=== PATIENT | female | born 1955 | race Caucasian/White ===

== ENCOUNTER 2021-10-17 20:07 | Inpatient (IN) | payer OTHER ==
[~2021-10-17] VITALS: Ht 180.3 cm; Wt 107.1 kg
--- NOTE | 2021-10-17 20:17 | NUR ---
ARRIVED VIA EMS AT 1999. A/O, INDEPENDENTLY TO BATHROOM TO VOID, VOMIT, CHANGE CLOTHES. RA, HAS CONTINUED TO HAVE VOMITUS SINCE ARRIVING. CURRENTLY IN BED, RESTING IN HOSPES THAT HER DECREASE IN MOVEMENT WILL SETTLE THE VOMITING. IS INCONT GENERALLY, HOWEVER WTIH THE VOMITING, SHE HAS INCREASE INCONT. H/O BREAST CANCER, ON CHEMO. DR HUDSON IN ROOM ADMITTING
--- NOTE | 2021-10-17 21:20 | NUR ---
ADMISSION ASSESSMENT COMPLETE. PT ALERT AND ORIENTED. REPORTS N/V AND EPIGASTRIC PAIN 03/25. PRN FOR PAIN AND N/V ADMINISTERED. SCHEDULED MEDS ADMINISTERD. BOWEL TONES HYPOACTIVE. ABD FIRM AND MILDLY DISTENDED. IVF INFUSING WNL. PT NPO. ORAL CARE SWABS AND CHAPSTICK PROVIDED. WARM BLANKET PROVIDED. PT ORIENTED TO ROOM AND NURSE CALL LIGHT. DENIES QUESTIONS OR CONCERNS AT THIS TIME. CALL LIGHT IN REACH. BED ALARM FOR SAFETY.
--- NOTE | 2021-10-17 23:40 | NUR ---
PT RESTING IN BED WITH EYES CLOSED. RESPIRATIONS EVEN. CALL LIGHT IN REACH. BED ALARM FOR SAFETY.
--- NOTE | 2021-10-18 02:26 | NUR ---
VS AND I&O COMPLETE. PT UP TO BR WITH SBA TO VOID 150 ML CONCENTRATED URINE. BACK TO BED, МАРИНА WELL. PRN FOR NAUSEA AND PAIN ADMINISTERED PER EMAR. PT SpO2 NOTED AT 86% ON RA. 1L/NC PLACED. SpO2 97%. WARM BLANKET PROVIDED. IVF INFUSING WNL. PT DENIES FURTHER NEEDS. CALL LIGHT IN REACH. BED ALARM FOR SAFETY.
--- NOTE | 2021-10-18 04:18 | NUR ---
PT RESTING IN BED WITH EYES CLOSED. RESPIRATIONS EVEN. SpO2 96% ON 1L/NC. HR 80'S.
--- NOTE | 2021-10-18 06:54 | NUR ---
SCHEDULED MEDS ADMINISTERED. PRN FOR ABD PAIN ADMINISTERED. PT DENIES NAUSEA. 1L/NC IN PLACE. SpO2 94%. RESPIRATIONS SHALLOW. NO FURTHER NEEDS. CALL LIGHT IN REACH.
--- NOTE | 2021-10-18 07:32 | NUR ---
Patient resting in bed, eyes closed, respirations even and non labored. Patient has no distress. Personal supplies and call light within reach.
[2021-10-18] MEDS ORDERED: DULOXETINE HCL20 MG PO (07:38)
[2021-10-18] MEDS ORDERED: IBRANCE100 M1 PO (07:38)
--- NOTE | 2021-10-18 08:44 | NUR ---
PATIENT RESTING IN BED. VITALS AND I&OS CHARTED. ORAL CARE PROVIDED. CALL LIGHT IN EASY REACH
--- NOTE | 2021-10-18 09:27 | NUR ---
Zofran 4mg IVP admin for reports of nausea.
--- NOTE | 2021-10-18 09:30 | NUR ---
Spoke with Luiza. She lives in [place] but has a vacation home in [place]. Planning to stay for 3 weeks, then return home. Unsure now as she may go home when discharged. She denies any use of DME. NO issues getting in or out of home, she drives, is a retired heavy equipment service technician. Not enjoying usp at this point as she has had cancer. Denies any need s. States he phone is out of juice, gave her a I phone director compensation from the office. Pt plans to dc to either [place] or [place] on dc. Will be with her spouse.
--- NOTE | 2021-10-18 09:33 | NUR ---
MED REC COMPLETED BY PHARMACY
--- NOTE | 2021-10-18 11:21 | NUR ---
PATIENT SBA TO BR. VIZCAINO CHANGED. PATIENT AMBULATING NOONAN WITH [facility] STUDENT NATALYA.
--- NOTE | 2021-10-18 11:26 | NUR ---
Patient ambulated in hallway, x1 lap around nurses station. Patient's gait is even and steady, pt tolerated walking well. Patient reports improved nausea this morning. Pt requesting to hold off on pain medicaiton at this time. No current needs. Encouraged patient to call if she has needs.
--- NOTE | 2021-10-18 14:04 | NUR ---
HERBER NIETO RECOMMENDED I NOT DISTURB PT AT THIS TIME. BATTLING SOME NAUSEA. WILL FOLLOW NEEDED
--- NOTE | 2021-10-18 14:09 | NUR ---
Patient resting in bed, eyes closed, respirations even and non labored. Patient has no distress. IV infusing per provider order, iv patent. Personal supplies and call light within reach.
--- NOTE | 2021-10-18 14:49 | NUR ---
Dilaudid 1mg ivp and zofran 4mg ivp admin for abd pain and nausea. Patient provided with ice pack for head pain.
--- NOTE | 2021-10-18 16:44 | NUR ---
Patient up to restroom to void then back to bed. Patient reports her nausea and headache have improved. Iv fluids infusing per provider order. No current needs. Ice pack provided. No other needs. Personal supplies and call light within reach.
--- NOTE | 2021-10-18 19:20 | NUR ---
SHIFT REPORT RECEIVED FROM EMILIA CRAVEN. PT PROVIDED ICE CHIPS AND MOUTH SWABS. NO OTHER NEEDS AT THIS TIME. PT DENIES PAIN. CALL LIGHT IN REACH.
--- NOTE | 2021-10-18 21:15 | NUR ---
IV PUMP ALARMING, ISSUE RESOLVED. NEW BAG IV FLUIDS HUNG AND INFUSING DIRECTED, IV SITE WNL. VS DONE, ELEVATED TEMP NOTED. PRIMARY RN PARMINDER RM. pt DEMONSTRATED USE OF IS, ROOM TEMP LOWERED AND EXESS BLANKETS REMOVED.
--- NOTE | 2021-10-18 21:30 | NUR ---
ASSESSMENT COMPLETED. GCS 15, A&O X4. LUNGS CLEAR, HEART TONES REGULAR. ABD FIRM, MILDLY DISTENDED, HYPOACTIVE BOWEL TONES. PT REPORTS CHRONIC NUMBNESS AND TINGLING IN FEET. IV WNL, CDI, FLUSHED WELL. IV FLUIDS INFUSING PER ORDER. NO OTHER NEEDS AT THIS TIME. CALL LIGHT IN REACH.
--- NOTE | 2021-10-19 | NUR ---
PT RESTING IN BED. RR EVEN, UNLABORED. CALL LIGHT IN REACH.
--- NOTE | 2021-10-19 02:00 | NUR ---
PT RESTING IN BED, EYES CLOSED. RR EVEN, UNLABORED. IV FLUIDS INFUSING PER ORDER. CALL LIGHT IN REACH.
--- NOTE | 2021-10-19 04:05 | NUR ---
IV PUMP ALARMING, RESOLVED. NEW BAG IV FLUIDS PROVIDED. PT REPORTS 5/10 ALEX, PRN PAIN MED PROVIDED. IV WNL. ABD MILDLY DISTENDED, FIRM, BOWEL TONES HYPOACTIVE. PT STATES SHE HAS NO FLATUS. PT DENIES ABD PAIN. CHRONIC NUMBNESS AND TINGLING IN FEET. PT SPO2 86% ON RA, PT PLACED ON 1L NC, SPO2 UP TO 93%. NO OTHER NEEDS AT THIS TIME. CALL LIGHT IN REACH.
--- NOTE | 2021-10-19 06:14 | NUR ---
Patient's BP was 114/56. Patient's daily weight today in kilograms is 107.1.
--- NOTE | 2021-10-19 07:45 | NUR ---
REPORT RECEIVED FROM NIGHT RN AND PT. CARE RESUMED. PT. IS ALERT AND ORIENTED TO ALL. SHE C/O ABD TENDERNESS AND HEADACHE. TYLENOL NOT DUE, PT STATES PAIN IS TOLERABLE FOR NOW. LUNGS CLEAR THROUGHOUT. SHE IS ON 1L NC. IV SITE WNL AND FLUSHES WELL. DISCUSSED MEDS, POC AND SAFETY. LEFT RESTING WITH CALL LIGHT IN REACH.
--- NOTE | 2021-10-19 09:10 | NUR ---
Spoke with Luiza. States she is feeling better slightly. Has a headache. Feels this if from not taking her duloxtine since the weekend. is bringing, nurses have updated Dr. Chinchilla.
--- NOTE | 2021-10-19 10:59 | NUR ---
ROUNDING ON PT. SHE C/O CONTINUED H.A. TYLENOL RECENTLY ADMIN. AND ICE PACK PROVIDED. PT. ATTRIBUTES H.A. TO BEING OFF DULOXETINE. MD WILL RESTART MED TODAY. PT. BROUGHT BROTH AND JELLO. LEFT RESTING WITH CALL LIGHT IN REACH.
--- NOTE | 2021-10-19 13:30 | NUR ---
PT. TRIALED ON R.A. AND TAKEN OFF 1L NC. 02 SAT. REMAINED AT 87%. PT. GIVEN I.S. AND EDUCATED ON USE.
--- NOTE | 2021-10-19 13:38 | NUR ---
GUIDED PT'S TO HER RM-GAVE THEM TIME TO GREET EACH OTHER. WILL CHECK BACK AGAIN
--- NOTE | 2021-10-19 14:10 | NUR ---
Spoke with pt by phone as she is Covid +. Pt states she lives in town in a house with 3 steps. Steps have rails and she does not have issues with her steps. She has horses and chickens and is active. complaint is cough with extreme weakness. She states her spouse will complete house hold tasks, shopping and cooking. She denies needs and is not using 02. Plans on dc to home with spouse.
--- NOTE | 2021-10-19 19:00 | NUR ---
SHIFT REPORT RECEIVED FROM OMKAR CRAVEN. PT RESTING IN BED. NO NEEDS AT THIS TIME. CALL LIGHT IN REACH.
--- NOTE | 2021-10-19 21:00 | NUR ---
ASSESSMENT, VS AND I&O COMPLETED. GCS 15, A&O X4. PT HAS CHRONIC NUMBNESS AND TINGLING IN FEET, PULSES INTACT. CMS INTACT IN UPPER EXTREMITIES. LUNGS CLEAR, PT SPO2 92% ON 1L NC, NOT CHRONIC. ABD FIRM, PT STATES MILDLY DISTENDED, BOWEL TONES RARE/HYPOACTIVE, TENDER. IV WNL, CDI, IV FLUIDS INFUSING PER ORDER. SCHEDULED MEDS PROVIDED. PT REPORTS 5/10 ALEX, PRN PAIN MED PROVIDED. ICE CHIPS PROVIDED. NO OTHER NEEDS AT THIS TIME. CALL LIGHT IN REACH.
--- NOTE | 2021-10-19 23:46 | NUR ---
PT RESTING IN BED, EYES CLOSED. RR EVEN, UNLABORED. IV FLUIDS INFUSING PER ORDER. NC @ 1L. CALL LIGHT IN REACH.
--- NOTE | 2021-10-20 00:43 | NUR ---
PT REPORTS 5/10 ALEX AND ABD PAIN, PRN PAIN MED PROVIDED. PT IS NOW NPO. NO OTHER NEEDS. CALL LIGHT IN REACH.
--- NOTE | 2021-10-20 03:01 | NUR ---
PT RESTING IN BED, EYES CLOSED. RR EVEN, UNLABORED. NC @ 1L. IV FLUIDS INFUSING PER ORDER. CALL LIGHT IN REACH.
--- NOTE | 2021-10-20 04:58 | NUR ---
IV PUMP ALARMING, NEW BAG IV FLUIDS PROVIDED. ABD FIRM, MILDLY DISTENDED, BOWEL TONES RARE, TENDER. IV WNL. NUMBNESS AND TINGLING IN FEET. ICE PACK PROVIDED FOR ALEX/NECK PAIN 11/23. NO OTHER NEEDS AT THIS TIME. CALL LIGHT IN REACH.
--- NOTE | 2021-10-20 06:31 | NUR ---
PT RESTING IN BED, EYES CLOSED. RR EVEN, UNLABORED. CALL LIGHT IN REACH.
--- NOTE | 2021-10-20 07:45 | NUR ---
REPORT RECEIVED FROM NIGHT RN AND PT. CARE RESUMED. PT. C/O BACK ACHE, H.A., AND LOWER ABDOMINAL AND EPIGASTRASTIC TENDERNESS. BOWEL TONES ABSENT IN ALL QUADS. PT. DENIES NAUSEA. ADMIN. OXYCODONE. PT. ON ROOM AIR, SITTING IN CHAIR AND O2 SAT IS 92%. IV SITE WNL AND IVF INFUSING. MRI WAS CALLED TO CONFIRM 1000 MRI. LEFT RESTING WITH CALL LIGHT IN REACH.
--- NOTE | 2021-10-20 09:20 | NUR ---
Pt walking in room. Denies needs.
--- NOTE | 2021-10-20 10:00 | NUR ---
PT. AMBULATED WITH SBA TO WHEELCHAIR TO GO TO MRI. IVF DISCONNECTED AND IV S.L. PT LEFT ON RA.
--- NOTE | 2021-10-20 11:11 | NUR ---
PT. BACK FROM MRI. IVF AND POTASSIUM CONNECTED AND INFUSING. AT BEDSIDE.
--- NOTE | 2021-10-20 11:31 | NUR ---
PT ALERT, ORIENTED AND JUST BACK FROM MRI. BUDDY IN WORKING ON COMPUTER. PT PLEASANT, FEELS INFORMED. WERE TRANSFERRED HERE FROM HOSP[place] VACATION [place]. FEEL GOOD REGARDING CARE, ALL QUESTIONS ASKED ANSWERED. GAVE G.POST, ENCOURAGEMENT AND PT REQUESTED PRAYER. WILL FOLLOW NEEDED
--- NOTE | 2021-10-20 13:53 | NUR ---
PT. C/O ALEX AND EPIGASTRIC, LOWER ABDOMINAL PAIN. ADMIN TYLENOL AND OXYCODONE. BOWEL TONES ABSENT THROUGHOUT AND ABDOMEN IS MORE DISTENDED. PT. ON R.A. AND O2 SAT IS 91%. IV WNL AND IVF INFUSING. PT. DENIED FURTHER NEEDS AND LEFT RESTING WITH AT BEDSIDE.
--- NOTE | 2021-10-20 14:27 | NUR ---
PT. AMBULATED FROM BATHROOM TO BED WITH SBA AND TOLERATED WELL, DENYING SOB. PT. DENIES PAIN AND STATES SHE IS READY TO GO HOME. VITALS STABLE AND ON ROOM AIR. PT. LEFT RESTING WITH CALL LIGHT IN REACH.
--- NOTE | 2021-10-20 18:18 | NUR ---
PT. AMBULATED WITH SBA TO BATHROOM TO VOID. DENIES DIZZINESS. BROUGHT JELLO AND WATER. IV MAG. AND POTASSIUM INFUSING. PT. DENIES FURTHER NEEDS AND LEFT RESTING WITH CALL LIGHT IN REACH.
--- NOTE | 2021-10-20 19:17 | NUR ---
BEDSIDE REPORT FROM OMKAR PT RESTING IN BED EYES CLOSED RR 19 BPM, NO DISTRESS NOTED, WHEN LOOKED IN.
--- NOTE | 2021-10-20 21:02 | NUR ---
PT SITTING AT SIDE OF BED AT THIS TIME. ALERT AND ORIENTED SHE CALLED NURSES STATION TO REPORT IV PUMP BEEPING.
--- NOTE | 2021-10-20 23:08 | NUR ---
PT RESTING QUIETLY IN BED, EYES CLOSED RR 20BPM. NO DISTRESS NOTED AT THIS TIME
--- NOTE | 2021-10-20 23:29 | NUR ---
PT PLACED ON 1L OXYGEN AT THIS TIME AT SPOT CHECK PT OXYGEN SATURATION IS 88% ON ROOM AIR. WHILE PT SLEEPING.
--- NOTE | 2021-10-21 02:51 | NUR ---
PT'S IV PUMP WAS BEEPING, IV IS NOW INFUSING FINE. PT IS RESTING WITH EYES CLOSED, RR IS EVEN AND UNLABORED. CALL LIGHT IS CLOSE.
--- NOTE | 2021-10-21 03:30 | NUR ---
PT CALLED NURSES [facility]ATION TO REQUEST PAIN MEDICATIONS FOR 6/10 BACK PAIN. 7.5 MG OXYCODONE PO PRN ADMINISTERED ALSO TYLENOL 500MG PO PRN ADMINISTERED. PT SITTING AT SIDE OF BED, SHE SAID TO ALSO RELIEVE BACK PAIN, AFTER TAKING MEDICATIONS, PT REPOSITIONED BACK INTO BED. FRESH ICE WATER PROVIDED, PT HAD VOIDED 450ML CADEN COLORED URINE IN BATHROOM. PT HAS NO OTHER REQUESTS AT THIS TIME, ASSESSMENT COMPLETE
--- NOTE | 2021-10-21 04:38 | NUR ---
PT HAS SLEPT MOST OF SHIFT, ALERT TO PAIN AND NEED TO VOID, PRN PAIN MEDICATIONS ADMINISTERED NEEDED OVER SHIFT FOR 5-6/10 PAIN AT HER BACK NO NAUSEA, NO BM, HYPOACTIVE BOWEL TONES NOTED IN RIGHT AND LEFT UPPER QUADRANTS OF ABD. NO FLATUS OF YET. PT IS TOLERATING CLEAR LIQUID DIET WELL. INDEPENDENT TO AMBULATE IN HER ROOM TO BATHROOM AND BACK.
--- NOTE | 2021-10-21 05:23 | NUR ---
PT RESTING IN BED EYES CLOSED RR 20 BPM, SNORING NOTED. NO DISTRESS NOTED AT THIS TIME.
--- NOTE | 2021-10-21 07:24 | NUR ---
SHIFT REPORT GIVEN TO THIS RN BY HERBER MAYA. PATIENT IS CURRENTLY INDEPENDENT IN THE ROOM AND UP IN THE BATHROOM. NO CARE NEEDS NOTED AT THIS TIME.
--- NOTE | 2021-10-21 08:31 | NUR ---
PATIENT UP IN THE BEDSIDE ARM CHAIR TO EAT BREAFAST. PAIN MEDICATIONS GIVEN FOR ABD/BACK PAIN 02/23. CLEAR LIQUID BREAKFAST TRAY CAME UP FOR PATIENT'S BREAKFAST. AM CARE COMPLETE. CALL LIGHT IS IN REACH AND PATIENT DENIES ANY OTHER NEEDS AT THIS TIME.
--- NOTE | 2021-10-21 10:05 | NUR ---
PATIENT JUST FINISHED GETTING A PORTABLE X-RAY. PATIENT'S PAIN DOWN TO 2/10 IN THE ABD/BACK NOW. PATIENT SAYS SHE IS COMFORTABLE AND DENIES ANY CARE NEEDS AT THIS TIME. PATIENT'S HAS ARRIVED AND IS AT BEDSIDE NOW. CALL LIGHT IS IN REACH.
--- NOTE | 2021-10-21 10:16 | NUR ---
PATIENT IN BED RESTING WITH EYES CLOSED. VISITOR IN ROOM. VITALS AND I&O'S CHARTED. CALL LIGHT IN REACH. NO FURTHER NEEDS AT THIS TIME.
--- NOTE | 2021-10-21 10:19 | NUR ---
PATIENT'S VS ARE STABLE AND PATIENT SAYS SHE IS COMFORTABLE AND HAS NO NEEDS AT THIS TIME. OFFERED SPOUSE COFFEE WHICH HE DECLINED. K+ RIDER HUNG AND IS INFUSING. CALL LIGHT IS IN REACH.
--- NOTE | 2021-10-21 11:34 | NUR ---
PATIENT RESTING QUIETLY ON HER RIGHT SIDE. PATIENT DENIES THE NEED FOR ANY PAIN MEDICATION AND VERBALIZES SHE IS DOING OK AND HAS NO CURRENT NEEDS. PATIENTS DENIES ANY NEEDS WELL AND IS WORKING ON HIS LAPTOP ON THE COUCH. CALL LIGHT IS I REACH.
--- NOTE | 2021-10-21 11:54 | NUR ---
PATIENT'S CLEAR LIQUID LUNCH TRAY HAS BEEN DELIVERD, BUT PATIENT IS CURRENTLY UP WALKING THE UNIT HALLWAY WITH HER .
--- NOTE | 2021-10-21 14:26 | NUR ---
WENT IN TO TALK WITH PATIENT AND SHE SAYS HE PAIN HAS INCREASED IN HER ABD AND IS 8/10 AT THIS TIME AND WAS MEDICATED WITH TYLENOL AND OXYCODONE. ICE WATER REFILLED AND ASSESSMENT COMPLETE. PATIENT DENIES ANY OTHER NEEDS AT THIS TIME. CALL LIGHT IS IN REACH.
--- NOTE | 2021-10-21 17:20 | NUR ---
16 AMHARIC NG TUBE PLACED IN PATIENT'S LEFT NARE WITHOUT DIFFICULTY AND PATIENT TOLERATED THE PROCEDURE WELL. GASTRIC CONTENT COULD BE ASPIRATED AND AUSCULTATION OF INJECTED AIR HEARD OVER THE STOMACH. THIS RN PLACED THE TUBE WITH ASSISTANCE FROM MATA GUZMÁN. X-RAY IS HEAR TO CONFIRM PLACEMENT.
--- NOTE | 2021-10-21 18:07 | NUR ---
CALLED ABOUT THE PLACEMENT OF THE TIP OF THE NG TUBE AT THE GE JUNCTION. ORDRED TO ADVANCE THE TUBE 4 INCH AND THEN IT WILL BE READY FOR USE NO NEED FOR REPEAT X-RAY. NG TUBE ADVANCED 4 INCHES BT THIS RN WITH AUSCULTATION OF AIR HEARD OF THE STOMACH WHEN INJECTED WITH SYRINGE.
--- NOTE | 2021-10-21 18:40 | NUR ---
RECTAL TUBE PLACED BY HERBER GUZMÁN WITH THIS RN ASSISTING. PATIENT WAS PLACED IN LEFT SIDE LAYING POSITION AND RECTAL TUBE INFLATED WITH 45MLS NS. PATIENT TOLERATED THIS PROCEDURE WELL. NO OUTPUT NOTED YET AT THIS TIME. BOWEL PREP MEDICATION STARTED VIA NG TUBE AND NG TUBE CLAMPED AT THIS TIME. PATIENT'S CALL LIGHT IN REACH AND PATIENT HAS NO OTHER CARE NEEDS AT THIS TIME.
--- NOTE | 2021-10-21 19:32 | NUR ---
BEDSIDE REPORT FROM QUINCY Arizmendi RN, PT ALERT AND ORIETNED, SHE REPORTS HAVING A HEADACHE, WILL ADMINISTER IV TYLENOL FOR THIS AFTER REPORTS. RECTAL TUBE IN PLACE, NGT IN PLACE. PT HAS NO OTHER CONCERNS OR REQUESTS AT THIS TIME.
--- NOTE | 2021-10-21 20:22 | NUR ---
PT REPORTS PAIN AT ABD/ALEX AT 02/23, SHE REQUESTS PAIN MEDICATION, IV TYLENOL 1000MG PRN NOW INFUSING. PT RESTING IN BED.
--- NOTE | 2021-10-21 20:33 | NUR ---
CRITICAL PHOS LAB CALLED BY LAB. PRIMARY HERBER MAYA CALLED TO NOTIFY DR. ALEXANDER.
--- NOTE | 2021-10-21 22:13 | NUR ---
DOSE MIRALX PLACED IN NGT AT THIS TIME, NGT CLAMPED FOR NEXT 30MIN. NOTED PT HAS SMALL AMOUNT OF LIQUID BROWN BM IN RECTAL TUBE. K-PHOS RIDER INFUSING.
--- NOTE | 2021-10-21 22:31 | NUR ---
PRIMARY RN REQUESTED A NEW IV START. STARTED 20GA IN LEFT FOREARM. pt TOLERATED WELL. FLUIDS MOVED TO NEW IV. AC IV HAS BRISK BLOOD RETURN, FLUSHED AND SL. pt RESTING IN BED. CALL LIGHT WITHIN REACH. PRIMARY RN UPDATED.
--- NOTE | 2021-10-21 22:59 | NUR ---
PT PLACED BACK TO SUCTION INTERMITTEN TO NGT AT THIS TIME
--- NOTE | 2021-10-22 00:19 | NUR ---
CONTINUE MIRLAX MEDICATION PER , FIRST BOTTLE OF MIRLAX/GATORAID COMPLETE. PT AMBULATED IN HALLS FULL OF MEDICAL SURGICAL UNIT. PT TOLERATED WELL WITH STANDBY ASSIST. PT INTO BATHROOM VOIDED 350ML OF LIGHT CADEN COLORED URINE.
--- NOTE | 2021-10-22 01:29 | NUR ---
PT CALLED FOR ASSISTANCE TO BATHROOM TO VOID. PT STANDBY ASSIST ONCE NGT DISCONNECTED. CONTINUED MIRLAX THERAPY. PT ALERT AND ORIENTED ON ROOM 96% OXYGEN SATURATION. SHE ASKED WHEN PAIN MEDICATIONS CAN BE GIVEN AGAIN, THIS RN EXPLAINED AT 0200. PT SAID "OK"
--- NOTE | 2021-10-22 02:47 | NUR ---
PT HAD REPORT PRESSURE ABOVE HER DIAPHRAM, PT PLACED BACK WALL SUCTION, SHE THEN REPORTS RELIEF FROM 4/10 TO 2/10. NO OTHER ISSUES, V/S STABLE. HEART RHYTHM RRR. PT NOW UP TO BATHROOM TO VOID.
--- NOTE | 2021-10-22 03:30 | NUR ---
PT RESTING IN BED EYES CLOSED RR RATE 20 BPM. NO DISTRESS NOTED.
--- NOTE | 2021-10-22 05:07 | NUR ---
PT HAS TOLERATED 1.5 OF THE BOTTLES OF GATORAID/MIRALAX DOSE, WHILE LAST HAD NGT CLAMPED PT REPORTED INCREASED PAIN AND PRESSURE ABOVE DIAPHRAM AND AT ABD. RELIEVED WITH NGT PLACED BACK TO SUCTION. PT HAS BEEN ADMINISTERED IV TYLENOL PRN AVAILABLE. SHE HAS AMBULATED IN HALLS. VERY SMALL AMOUNT OF LIQUID BROWN STOOL IN RECTAL TUBE. SHE IS VOIDING QUANTITY SUFFICIENT PLUS URINE OUT. NOTED ON 1 MIN LISTEN TO BOWEL TONE PT HAD ON TONE AT LEFT UPPER QUADRANT. ABD CONTINUES TO BE SEVERE DISTENDED AND TIGHT.
--- NOTE | 2021-10-22 07:30 | NUR ---
PATIENT RESTING ON HER LEFT SIDE AND DENIES ANY CARE NEEDS AT THIS TIME. CALL LIGHT IN REACH. SHIFT REPORT RECEIVED FORM HERBER MAYA.
--- NOTE | 2021-10-22 09:46 | NUR ---
PT UP TO RESTROOM, ASSISTED TO CHANGE GOWN AND STRAIGHTEN EVERYTHING UP. WARM BLANKET, OFIRMEV. IMAGING IN TO DO XRAY.
--- NOTE | 2021-10-22 10:11 | NUR ---
THIS RN IN TALKING WITH PATIENT AND HER . CONCERNED BECAUSE HE SAYS PATIENT IS SAYING,"OFF THE WALL THINGS", ASKING HIM ABOUT THEIR,"CAT THAT HAS BEEN FOR 20 YEARS". PATIENT IS AWARE OF TIME, DATE, AND SITUATION, BUT SAYS SHE IS SEEING PEOPLE WHEN SHE CLOSES HER EYES AND THEY ARE TALKING TO HER. AND PATIENT ARE REQUESTING SOMETHING FOR SLEEP AND WANTING TO KNOW IF THERE IS ANYTHING ELSE SHE MIGHT HAVE FOR PAIN. INFORMED THIS RN TO MONITOR TH PATIENT AND LONG SHE IS NOT GETTING AGGITATED AND UNPREDICTABLE TO REASSURE THE PATIENT AND THAT THIS IS MOST LIKELY FROM HER LACK OF SLEEP AND THAT WE HAVE TO CONTINUE THE IV TYLENOL FOR NOW, THE NARCOTIC PAIN MEDICATIONS COULD MAKE HER SITUATION WORSE.
--- NOTE | 2021-10-22 10:15 | NUR ---
PATIENT AND INFORMED OF DISCUSSION WITH ABOUT PATIENTS MENTATION AND PAIN MEDICATION AND THEY VERBALIZED UNDERSTANDING AND ARE OK WITH THE PLAN FOR NOW. CALL LIGHT IS IN REACH AND GUEST RELATIONS RECEPTIONIST IS ASSISTING PATIENT IN TO THE BATHROOM.
--- NOTE | 2021-10-22 11:23 | NUR ---
PT CALL LIGHT ON. PT REQUESTS ASSISTANCE UP TO RESTROOM. 1 PERSON ASSIST FOR LINE AND TUBE MANAGEMENT UP TO RESTROOM. PT REQUESTS TO AMBULATE IN [place]. PT UP WITH 1 PERSON ASSIST AND AMBUALTES IN NOONAN X1 LAP. PT BACK TO ROOM. NO ADDITIONAL REQUESTS OR COMPLAINTS. CALL LIGHT WITHIN REACH. BED RAILS UP. NG TUBE TO LOW INTERMITANT SUCTION. RECTAL TUBE IN PLACE. PTS RN UPDATED.
--- NOTE | 2021-10-22 12:12 | NUR ---
PATIENT STARTED TO NAUSEA NAD HEAVES. 4MG IV ZOFRAN SIVP GIVEN. NG TUBE REMAINS AT [facility]. IS HERE TALKING TO THE PATIENT AND HER THAT THE X-RAY FROM THIS MORNING LOOKS BETTER AND THAT WE ARE GOING TO JUST CONTINUE THE CURRENT TREATMENT FOR NOW. PATIENT AND VERBALIZED UNDERSTANDING. GAVE THIS RN A VO FOR CEPACOL CASSY Q4/HRS PRN FOR SORE THROAT. ORDER ENTERED AN AWAITING DOWNLOAD TO [employer]. LEAVING ROOM AND REMAINS IN ROOM. CALL LIGHT IN REACH.
--- NOTE | 2021-10-22 12:41 | NUR ---
PATIENTS NAUSEA IS GONE AND A CEPACOL CASSY GIVEN FOR SORE THROAT. PATINE HAS NO OTHER NEEDS AT THIS TIME. CALL LIGHT IS IN REACH.
--- NOTE | 2021-10-22 14:20 | NUR ---
IV'S SALINE LOCKED SO SHE CAN SHOWER. MATA HUDSON ASSISTING PATIENT IN TO SHOWER. PATIENT HAS NO OTHER NEEDS FROM ME AT THIS TIME.
--- NOTE | 2021-10-22 15:18 | NUR ---
PATIENT BACK IN BED AND FEELING BETTER OFTER SHOWER, BUT HAVING 6/10 ABD PAIN. THIS RN GETTING SOME IV TORADOL FOR PATIENT. IV'S FLUSHED AND IV FLUIDS TURNED BACK ON. NG TUBE BACK TO LCWS. CALL LIGHT IS IN REACH.
--- NOTE | 2021-10-22 15:43 | NUR ---
15MG IV TORADOL GIVEN SIVP. PAIN 6/10 IN ABD/BACK. CALL LIGHT IN REACH. NO OTHR NEEDS AT THIS TIME.
--- NOTE | 2021-10-22 17:02 | NUR ---
THIS RN TOOK TELEPHONE ORDER FROM TO TENZIN VÁZQUEZ. MED BRENT.
--- NOTE | 2021-10-22 17:07 | NUR ---
THIS RN CHECKED IN WITH PATIENT AND SHE SAID,"I HAVE SLEPT SINCE YOU GAVE ME THE MEDICATIO AND MY PAIN IS 3/10 NOW AND I'M COMFORTABLE." PATIENT HAD NO OTHER CARE NEEDS AT THIS TIME. CALL LIGHT IS IN REACH.
--- NOTE | 2021-10-22 18:42 | NUR ---
PATIENT IN BED RESTING AT THIS TIME. VITALS AND I&O'S CHARTED. CALL LIGHT IN REACH. BED ALARM ON. NO FURTHER NEEDS AT THIS TIME.
--- NOTE | 2021-10-22 19:30 | NUR ---
BEDSIDE REPORT FROM QUINCY Arizmendi RN, PT RESTING IN BED, SHE HAS BEEN ABLE TO SLEEP THIS AFTERNOON. SHE IS ALERT AND ORIENTED. NO REQUESTS AT THIS TIME
--- NOTE | 2021-10-22 19:50 | NUR ---
BED ALARMING. WENT IN TOT HE ROOM. PATIENT WAS SITTING AT THE EDGE OF THE BED WITH SIDE TABLE IN FORNT OF HER. IS IN THE ROOM. BED ALARM IS SET ON.
--- NOTE | 2021-10-22 20:52 | NUR ---
V/S TAKEN AND CHARTED BY HERBER MAXWELL.
--- NOTE | 2021-10-22 21:20 | NUR ---
BED ALARMING. PATIENT GOT UP BY THE EDGE OF THE BED. SBA TO BEDSIDE COMMODE. PATIENT VOIDED 400ML. PATIENT IS BACK IN BED. WARM BLANKET PROVIDED. NO OTHER NEEDS AT THIS TIME. BED ALARM SET.
--- NOTE | 2021-10-23 00:47 | NUR ---
PT RESTING QUIETLY IN BED ON LEFT SIDE EYES CLOSED RR 18 BPM, NO DISTRESS NOTED, PT SLEEPING AT THIS TIME.
--- NOTE | 2021-10-23 01:32 | NUR ---
PATIENT CALLED TO USE THE BATHROOM AND ASKED FOR PAIN MEDS. HERBER MAYA NOTIFIED FOR PAIN MEDS. SBA TO BEDSIDE COMMODE. PATIENT IS BACK IN BED. HERBER MAYA WAS WITH PATIENT.
--- NOTE | 2021-10-23 02:09 | NUR ---
PT REPORTS PAIN 4/10, ABD, ASSESSMENT COMPLETE, PT UP TO BATHROOM AMBULATING STANDBY ASSIST.
--- NOTE | 2021-10-23 04:06 | NUR ---
PT RESTING QUIETLY IN BED ON RIGHT SIDE. EYES CLOSED RR EVEN AT 20 BPM, NO DISTRESS NOTED.
--- NOTE | 2021-10-23 04:35 | NUR ---
PT REPORTS PAIN 4/10, TORDOL 30MG IV PRN ADMINISTERED AT THIS TIME FOR ABD PAIN. SHE REPORTS MUSIC CHANNEL ON TV IS HELPING HER TO RELAX "IT GROUNDS ME" NO OTHER REQUESTS AT THIS TIME.
--- NOTE | 2021-10-23 04:49 | NUR ---
PT HAS SLEPT WELL INTERMITTENLY, UP TO BATHROOM TO VOID, NO BM OR FLATUS THIS SHIFT. NGT TO LOW INTERMITTEN SUCTION, 25ML OUT OVER SHIFT. PAIN MANAGED WITH PRN TYLENOL AND TORDOL. SHE HAS ENJOYED THE MUSIC CHANNEL ON TV, SHE SAID IT IS HELPING HER SLEEP AND BE "GROUNDED" BOWEL TONES ARE NOTED IN RUQ/LUQ HYPOACTIVE AND RLQ RARE. NGT UNCLAMPED AND REPOSITONED IN AT NARE TO PREVENT PRESSURE ULCER. RECTAL TUBE IN PLACE, NO NEW STOOL OUT THIS SHIFT.
--- NOTE | 2021-10-23 06:23 | NUR ---
PT CALL LIGHT ON. PT REQUESTS ASSISTANCE UP TO BEDSIDE COMODE. 1 PERSON ASSIST UP TO BEDSIDE COMODE FOR LINE AND TUBE MANAGEMENT. PT VOIDS ML WITH OUT ISSUE. PT PERFORMES SELF VITA CARE. 1 PERSON ASSIST BACK TO BED. VITAL SIGNS TAKEN, STABLE. IV FLUIDS COMPLETE, NEW BAG HUNG. NO ADDITIONAL REQUESTS OR COMPLAINTS. PT RESTING ON LEFT SIDE WITH EYES CLOSED. CALL LIGHT WITHIN REACH. BED RAILS UP.
--- NOTE | 2021-10-23 07:34 | NUR ---
SHIFT REPORT RECEIVED BY THIS RN FROM HERBER MAYA. PATIENT IS RESTING QUIETLY IN BED, AND SAYS SHE IS COMFORTABLE AND DID SLEEP LAST NIGHT. PATIENT REQUESTED ANOTHER PILLOW FOR HER HEAD AND THIS WAS GIVEN. AM ASSESSMENT COMPLETE AND PATIENT HAS HYPOACTIVE BOWEL TONES IN ALL 4 QUADS NOW. PATIENT HAS NO OTHER CARE NEEDS AT THIS TIME. CALL LIGHT IS IN REACH.
--- NOTE | 2021-10-23 09:20 | NUR ---
Attempted to see, pastorial care in room.
--- NOTE | 2021-10-23 09:47 | NUR ---
PATIENT IN BED, RN IN ROOM TRYING TO START NEW IV. VITALS AND I&O'S CHARTED. CALL LIGHT IN REACH. NO FURTHER NEEDS AT THIS TIME.
--- NOTE | 2021-10-23 10:00 | NUR ---
Notified by Rn, pts spouse would like me to visit. In and spoke with pt and spouse. Spouse has mulitple questions about what their insurance covers and what they will have to pay out of pockets. Also wanting print out of "what has been done". Discussed pt has a right to her full chart, but will need to sign a MUSTAPHA and he will need to go through medical records. I sent a text to UR and asked if their insurance is in net work. Received a reply, "she has coverage everywhere in [place], she has been authorized for payment through 10/27. UPdated pt and spouse. He then began asking medical questions and I requested he speak with either Dr. Chinchilla or Dr. Padilla. Pt denies questions. MUSTAPHA given on clipboard with a pen.
--- NOTE | 2021-10-23 10:03 | NUR ---
THIS RN ASKED TO ASSIST WITH IV START. IV STARTED PER PROTOCOL TO RIGHT AC. BRISK BLOOD RETURN NOTED WITH IV START. K PHOS STARTED PER PTS RN. PT DENIES ADDITIONAL REQUESTS OR COMPLAINTS. CALL LIGHT WITHIN REACH. FAMILY AT BEDSIDE. PTS RN UPDATED.
--- NOTE | 2021-10-23 10:25 | NUR ---
ALF FROM CASE MANAGEMENT WAS INFORMED PATIENT AND ARE REQUESTING TO SEE HER. ALF GOING IN TO TALK WITH THEM.
--- NOTE | 2021-10-23 10:58 | NUR ---
PATIENT HAS BEENUP AND WALKED A COUPLE OF LAPS AROUND MED/SURG. PATIENT HAVING 7/10 ABD/BACK PAIN AND 30MG SIVP TORADOL WAS GIVEN. PATIENT AND SPOUSE DENIED ANY OTHER CARE NEEDS AT THIS TIME. CALL LIGHT IS IN REACH.
--- NOTE | 2021-10-23 12:54 | NUR ---
TRANSFER REPORT GIVEN TO HERBER HEARN IN CCU. CCU ROOM STILL BEING CLEANED AND THEY WILL CALL BACK WHEN READY TO TRANSFER.
--- NOTE | 2021-10-23 13:04 | NUR ---
PATIENT STASTES THE IV TORADOL, "WORKED FOR A LITTLE BIT", BUT ABD AND BACK PAIN 7/10 NOW AND IV TYLENOL STARTED. NO OTHER CARE NEEDS AT THIS TIME. CALL LIGHT IN REACH.
--- NOTE | 2021-10-23 13:59 | NUR ---
PT ALERT, ORIENTED, BUDDY IN RM. PT NOW HAS NG TUBE IN USE, CAN TELL PT IS NOT FEELING WELL BUT PLEASANT. BOTH FEEL THEY ARE INFORMED AND WELL CARED FOR. GAVE JAYME AND HAD PRAYER WITH BOTH. GAVE ENCOURAGEMENT, WILL CONTINUE TO FOLLOW
--- NOTE | 2021-10-23 14:05 | NUR ---
PATIENT IN BED RESTING WITH EYES CLOSED. VITALS AND I&O'S CHARTED. CALL LIGHT IN REACH. NO FURTHER NEEDS AT THIS TIME.
--- NOTE | 2021-10-23 14:55 | NUR ---
PATIENT'S AFTERNNON ASSESSMENT COMPLETE AND VS AND I+O CHARTED. PATIENT REMAINS ON 15L/NC HIGH FLOW AND 15L/NRB MASK. O2 SATS=83%. THIS RN INFORMED PATIENT WHAT HIS OXYGEN LEVELS ARE AND HE STILL DOES NOT WANT TO GO ON CPAP. RESPIRATIONS ARE 36/MIN AND SHALLOW WITH RETRACTIONS. PATIENT DENIES PAIN AND ANXIETY. "I'M OK FOR NOW." CALL LIGHT IN REACH AND ICE WATER REFILLED. NO OTHER CARE NEEDS AT THIS TIME.
--- NOTE | 2021-10-23 16:02 | NUR ---
PATIENT GIVEN NEOSTIGMINE IV 2.5 MG DILUTED IN 7.5 ML OF NORMAL SALINE OVER 7 MINUTES. PT STARTING TO FEEL EFFECTS OF HEAD FEELING DIZZY, EYES PULSATING, STOMACH CRAMPING, FACE TWITCHING, SWEATING IN HER FACE AND EXCESSIVE SALIVATION. HR IN THE 70-80s PRIOR TO ADMIN, AND NOW IN THE 60s BRIEFLY, BUT TRENDING BACK TO THE 80s. BLOOD PRESSURE STABLE, 159/83 (105) AT THIS TIME. CONTINUE TO MONITOR CLOSELY. THIS RN STAYING AT BEDSIDE WITH PATIENT.
--- NOTE | 2021-10-23 16:39 | NUR ---
Patient resting, eyes closed, respirations even and non labored. Patient responds to verbal stimuli. Vital signs stable, afebrile. NG intact and patent, clear light brown gastric content noted. Patient has no distress at this time. Rectal tube intact, patent with thin watery brown stool noted. Patient's at bedside. No needs. SP02 96% on room air.
--- NOTE | 2021-10-23 18:59 | NUR ---
PATIENT HELPED UP TO BEDSIDE COMMODE AND CHANGED LINENS. BED BATH WIPES PROVIDED AND HELPED PATIENT TO WIPE DOWN. NGT SECURED WITH NEW TAPE. MILD AMOUNTS OF STOOL NOTED IN RECTAL TUBE. PT REPORTS FEELING SLIGHTLY BETTER AFTER THE NEOSTIGMINE. PATIENT'S ROSHNI REMAINS IN ROOM. CONTINUE TO MONITOR.
--- NOTE | 2021-10-24 08:07 | NUR ---
PATIENT ASLEEP AT THIS TIME. PER FINISH REMOVER REPORT, PATIENT DID NOT SLEEP WELL IN THE NIGHT AND WILL BE ALLOWED TO CONTINUE RESTING UNTIL SHE AWAKENS. NGT REMAINS IN LEFT NARE, HOOKED TO CONTINUOUS LOW SUCTION. RECTAL TUBE CAME OUT IN THE NIGHT AND WAS NOT REPLACED. PT REMAINS IN SINUS RHYTHM ON MONITOR, HR IN THE 70s. WILL CONTINUE TO MONITOR. PT'S ROSHNI NOT HERE YET.
--- NOTE | 2021-10-24 09:17 | NUR ---
PATIENT UP TO BATHROOM WITH SBA. PATIENT SOB WHEN BACK TO BED. LINENS CHANGED AND PATIENTS HAIR BRUSHED FOR HER. ON COUCH. NG IN PLACE. CALL LIGHT IN REACH, NO OTHER NEEDS AT THIS TIME
--- NOTE | 2021-10-24 10:01 | NUR ---
PATIENT TAKEN TO PACU TO HAVE A PICC LINE PLACED, AND THEN WILL GO DIRECTLY FOR HER COLONOSCOPY. PATIENT SALINE LOCKED AT THIS TIME FOR PROCEDURE. PT'S REMAINS IN ROOM AND WILL BE TAKEN OVER TO HER NEW ROOM ON MED/SURG.
--- NOTE | 2021-10-24 11:48 | NUR ---
10/24/21 1148 Aparna Lindquist 1131 PT TO PACU SLEEPING, ORAL AIR WAY IN PLACE, NG TUBE PATENT,
--- NOTE | 2021-10-24 11:58 | NUR ---
PT TAKEN TO OR FOR PICC LINE AND SCOPE. BUDDY IN RM-GAVE ENCOURAGEMENT WILL CONTINUE TO FOLOW
--- NOTE | 2021-10-24 13:56 | NUR ---
PT AWAKE IN BED WITH AT BEDSIDE. CALL LIGHT WITHIN REACH. NO FURTHER NEEDS AT THIS TIME.
--- NOTE | 2021-10-24 14:21 | NUR ---
PT BACK FROM SCOPE, IN M/S NOW. STAFF IN CARING FOR PT, GAVE ENCOURAGEMENT AND WILL CHECK BACK
--- NOTE | 2021-10-24 14:23 | NUR ---
PATIENT ARRIVED BACK TO MED/SURG #[id number] AT 1335 WITH FRANCESCORN FROM PACU. VS ARE STABLE, NG-TUBE TO LCWS WITH BROWN/GREEN BILE DRAINAGE. LR STARTED AT 125MLS/HR IN NEW PICC LINE AFTER BLOOD ASPIRATED AND THEN FLUSHED WITH 20MLS NS. KPHOS RIDER RUNNING IN OTHER PIC LINE AT 85MLS/HR. HERE TALKING WITH PATIENT AND . PATIENT INFORMED THAT SHE WANTED SOME OTHER SLEEP AIDE THE TRAXADONE MADE HER FEEL BADLY AND GAVE HER BAD DREAMS. WILL ORDER SOMETHING ELSE AND RESTART HER CYMBALTA. CONTRAST FOR CT MIXED WITH APPLE JUICE AND PUT DOWN NG-TUBE FOR UPCOMING CT. PATIENT GOING FOR A WALK AROUND THE MED/SURG UNIT WITH HER .
--- NOTE | 2021-10-24 14:29 | NUR ---
ASKED BY DR CARABALLO TO EVALUATE PATIENT FOR POTENTIAL PICC LINE PLACEMENT D/T TPN. AFTER REVIEWING THE CHART AND INTERVIEWING THE PATIENT, NO ABSOLUTE CONTRAINDICATIONS WERE IDENTIFIED. PATIENT WAS ABLE TO SING CONSENT FORM AND ASKS QUESTIONS APPROPRIATELY. PATIENT'S LEFT ARM WAS EVALUATED USING THE SITE RITE U/S. RIGHT ARM HAS HAD LYMPHNODES REMOVED AFTER MASTECTOMY. PATIENT'S BRACHIAL AND CEPHALIC WERE IDENTIFIED. THE BRACHIAL WAS LARGER, ONLY TAKING UP APPROX 28-30% OF VESSEL SEE PROGRESS NOTE IN PATIENT'S CHART. CDC RECOMMENDED GUIDELINES FOR STERILE PREP OF INSERTION SITE WERE THEN FOLLOWED. BRACHIAL VEIN WAS ACCESSED UPON SECOND ATTEMPT. DARK, NON PULSATILE BLOOD WAS RETURNED. GUIDEWIRE THREADED EASILY INTO VEIN, WELL INTRODUCER, AND PICC LINE. PICC LINE WAS PLACED WITH SHERLOCK TIP GUIDE/MAGNET. CHEST XRAY DONE. RADIOLOGIST NOTED TIP TO BE IN RIGHT ATRIUM AND TO WITHDRAW 2 CM. LINE WITH DRAWN CM AND STERILE DRESSING APPLIED. REPORT TO QUINCY CRAVEN. PATIENT GIVEN EDUCATION MATERIAL ON PICC. PATIENT ENCOURAGED TO ASK QUESTIONS REGARDING HER PICC NEEDED.
--- NOTE | 2021-10-24 15:09 | NUR ---
PATIENT BACK IN IN ROOM IN BED FROM HER WALK AFTER GOING TO THE RESTROOM. AT THE BEDSIDE. PATIENT DID 3 LAPS AROUND THE MED/SURG UNIT AND DID WELL. CALL LIGHT IN REACH AND PATIENT AWAITING TO GO TO CT.
--- NOTE | 2021-10-24 16:33 | NUR ---
PATIENT BACK FROM CT AND HOOKED UP TO LCWS ON NG-TUBE. TPN STARTED WITH THIS RN AND HERBER KAHN. GURPREET PUT IN WATER AND PUT DOWN NG TUBE AND NG-TUBE CLAMPED FOR NOW. PATIENT HS A HATING PAD ON HER BACK THAT SHE REQUESTED. PATIENT HAS NO OTHER CARE NEEDS AT THIS TIME. CALL LIGHT IN REACH AND AT BEDSIDE.
--- NOTE | 2021-10-24 17:14 | NUR ---
PT UP TO BATHROOM INDEPENDENTLY. PT NOW BACK TO BED WITH AT BEDSIDE. CALL LIGHT WITHIN REACH. NO FURTHER NEEDS AT THIS TIME.
--- NOTE | 2021-10-24 19:24 | NUR ---
IN ROOM FOR REPORT, PT STATES SHE WOULD LIKE EGG CRATE MATRESS. WILL CHECK INTO GETTING ONE. PT DENIES FURTHER NEEDS. CALL LIGHT IS CLOSE AND IV IS INFUSING FINE.
--- NOTE | 2021-10-24 21:19 | NUR ---
IN ROOM TO ASSESS PT AND ADMINISTER MEDICATION. NGTUBE IS CLAMPED AT THIS TIME FOR THE PO SEROQUEL. PT TOOK WITH SIP OF WATER. GOOD BLOOD RETURN ON BOTH LUMENS OF PICC. TORADOL 30MG IV ADMINISTERED FOR 5/10 BACK PAIN. WE ARE STILL TRYING TO GET AHOLD OF AN EGGCRATE MATTRESS. PT DENIES FURTHER NEEDS AT THIS TIME. CALL LIGHT IS CLOSE.
--- NOTE | 2021-10-24 21:35 | NUR ---
PT REPORTS PASSING GAS, SWITCHED IV FLUID BACK TO LR SINCE POT PHOSPHATE IS COMPLETE. PT DENIES FURTHER NEEDS AT THIS TIME. CALL LIGHT IS CLOSE.
--- NOTE | 2021-10-24 22:30 | NUR ---
PATIENT GOT UP TO THE TOILET. SBA. EGG CRATE MATTRESS PLACED. BED LINEN CHANGED. PATIENT'S GOWN CHANGED. NGT BACK ON. PATIENT STATED "TELL MY NURSE THAT I AM PASSING GAS" PRIMARY RN NOTIFIED. BED ALARM ON. CALL LIGHT IN REACH.
--- NOTE | 2021-10-24 23:27 | NUR ---
PT IS RESTING WITH EYES CLOSED, RR IS EVEN AND UNLABORED. NGT IS ON LIWS AND IV IS INFUSING FINE. CALL LIGHT IS CLOSE. PT REPORTED TO PAOLO AUGUST THAT SHE PASSED MORE GAS. DR CARABALLO STOPPED BY AND IS AWARE.
--- NOTE | 2021-10-25 01:07 | NUR ---
PT'S IV PUMP WAS BEEPING, PT REPORTS PAIN 5/10 IN BACK. ADMINISTERED OFIRMEV. 1PA TO RESTROOM AND BACK TO BED. PT WAS ABLE TO PASS MORE GAS. BLOOD GLOCOSE TAKEN AND ENTERED, 139. PT BACK TO WALL SUCTION AND DENIES FURTHER NEEDS. CALL LIGHT IS CLOSE.
--- NOTE | 2021-10-25 03:13 | NUR ---
PT IS RESTING WITH EYES CLOSED, RR IS EVEN AND UNLABORED. CALL LIGHT IS CLOSE AND IV/TPN IS INFUSING FINE.
--- NOTE | 2021-10-25 04:33 | NUR ---
IN ROOM TO ADMINISTER TORADOL FOR 5/10 BACK PAIN AND DRAW LABS TO SEND. WARM BLANKET PROVIDED AND PT DENIES FURTHER NEEDS. CALL LIGHT IS CLOSE.
--- NOTE | 2021-10-25 06:23 | NUR ---
IN ROOM TO GET VS/I&O'S. PT UP TO USE RESTROOM SBA. NG TUBE WAS TAKEN OUT BY AND IT PUT OUT 300MLS OVERNIGHT. PT DENIES FURTHER NEEDS AT THIS TIME. CALL LIGHT IS CLOSE.
--- NOTE | 2021-10-25 07:27 | NUR ---
REPORT RECEIVED FROM HERBER MACKENZIE. PT UP TO CHAIR VISITING WITH . PT RPEORTS 5/10 LOWER BACK PAIN AT THIS TIME AND STATES SHE WOULD LIKE PAIN MEDICATIONS WITH HER MORNING MEDICAITONS. PT DENIES NAUSEA. PT REPORTS SHE HAS BEEN PASSING GAS. NO ADDITIONAL REQUESTS OR COMPLAINTS. CALL LIGHT WITHIN REACH. AT BEDSIDE. PT REPORTS FEELING "A LOT BETTER WITH THAT NOSE TUBE OUT."
--- NOTE | 2021-10-25 08:00 | NUR ---
MORNING ASSESSMENT AND MEDICATION DUE. PT REMAINS UP TO CHAIR. PT CONTINUES TO REPORT 5/10 PAIN IN ABDOMEN AND LOWER BACK. SEE MAR FOR MEDICATION GIVEN. PICC LINE ASSESSED, WNL, BRISK BLOOD RETURN NOTED FROM BOTH LUMENS. ALOCHOL CAPS APPLIED TO ACCESS PORTS. PT CONTINEUS TO REPORT NEUROPATHY IN FEET AND SMALL AMOUNTS IN FINGERS. PT REPORTS THIS IS PER BASELINE. PT UP INDENDANTLY IN ROOM, STEADY ON FEET. ASSISTANCE WHEN NEEDED WITH LINE MANAGEMENT. LUNG SOUNDS CLEAR. PT REMAINS ON TELEMETRY MONITORING, NORMAL SINUS RHYTHEM NOTED AT THIS TIME WITH HEAR RATE 70-80'S. ABDOMENT REMAINS MILDLY DISTENEDED, PT REPORTS THIS HAS IMPROVED SINCE ADMISSION. BOWEL TONES HEART BUT HYPOACTIVE. NG TUBE NO LONGER IN PLACE, REMOVED BY DR. CARABALLO. EDUCATION DONE WITH PT REGARDING CLEAR LIQUID DIET AND SLOW TRIAL OF FLUID. PT VERBALIZES UNDERSTANDING. EMESIS BAG PROVIDED IN CASE OF NEED. NO ADDITIONAL REQUESTS OR COMPLAINTS. CALL LIGHT WITHIN REACH. AT BEDSIDE.
--- NOTE | 2021-10-25 09:00 | NUR ---
Spoke with Luiza. She is sitting up in chair. NG out. Smiling. Denies needs. Wants to know how her chart can get to her oncologist at [facility]. UPdated chart will be sent when she is discharged.
--- NOTE | 2021-10-25 09:53 | NUR ---
THIS RN TO ROOM TO CHECK ON PT. PT RESTING ON LEFT SIDE WITH EYES CLOSED, RESPIRATIONS EVEN AND UNLABORED, MILD SNORNING NOTED. IV FLUIDS STOPPED. POTASSIUM STARTED (SEE MAR). BRISK BLOOD RETURN NOTED FROM PICC LINE. NO ADDITIONAL NEEDS AT THIS TIME. AT BEDSIDE. BED RAILS UP. CALL LIGTH WITHIN REACH.
--- NOTE | 2021-10-25 11:06 | NUR ---
MD CONSULTED REGARDING HOSPICE CONSULT, TELEMETEY MONITORING AND BLOOD SUGAR CHECKS/TPN. MD STATES TO LEAVE TPN ORDER IN PLACE WITH BLOOD SUGAR CHECKS CURRENTLY SCHEDULED. HOSPICE CONSULT WAS ENTERED IN ERROR, DC'D BY MD. ORDERS GIVEN TO DC TELEMETRY. PT CONTINUES RESTRING ON LEFT SIDE WITH EYES CLOSED. WILL DC'D TELEMETRY MONITORING WHEN PT AWAKENS. NO ADDITIONAL NEEDS AT THIS TIME. CALL LIGHT WITHIN REACH. RESPIRATIONS EVEN AND UNLABORED.
--- NOTE | 2021-10-25 12:06 | NUR ---
THIS RN TO ROOM TO CHECK ON PT. PT WAKING UP NATRUALLY FROM HER NAP. PT STATE "THAT IS THE FIRST GOOD SLEEP I HAVE HAD SINCE I'VE BEEN HERE." TELEMETRY DC'D PER MD ORDER. STAND BY ASSIST UP TO RESTROOM. PT VOIDS WITHOUT ISSUE. PT PERFORMS SELF VITA CARE. DEPENDS CHAGNED PER PT. STAND BY ASSIST UP TO CHAIR FOR LUNCH. CLEAR LIQUIDS DELIVERED FOR LUNCH. NO ADDITIONAL REQUESTS OR COMPLAINTS. CALL LIGHT WITHIN REACH.
--- NOTE | 2021-10-25 13:16 | NUR ---
PUMP ALARMING, POTASSIUM INFUSION AND FLUSH COMPLETE. PICC LINE ASSESSED, WNL. BRISK BLOOD RETURN NOTED. PURPLE LUMEN FLUSHED AND HEP LOCKED PER PROTOCOL. RED LUMEN CONTINUES INFUSING TPN. PT REMAINS UP TO CHAIR, SLOWLY SIPPING ON CLEARS. PT REPORTS "IT'S HARD TO GO SLOWLY." PT DENIES PAIN AND NAUSEA AT THIS TIME. NO ADDIITONAL REQUESTS OR COMPLAINTS. PT TALKING WITH [employer] SURVEILLANCE OFFICER. CALL LIGHT WITHIN REACH.
--- NOTE | 2021-10-25 13:49 | NUR ---
AFTERNOON ASSESSMENT AND BLOOD SUGAR CHECK DUE. THIS RN TO ROOM. PT UP TO CHAIR, TALKING WITH CASE MANAGEMENT AND SIPPING ON FLUIDS. PT HAS BEEN ABLE TO DRINK BROTH, APPLE CIDER AND JUICE. PT DENIES NAUSEA AT THIS TIME. PT REPORTS 4/10 PAIN IN ABDOMEN AND LOWER BACK. PT DENIES NEED FOR PAIN MEDICATION. PT UP TO AMBULATE X 2 LAPS IN [place]. PICC LINE REMAINS WNL. TPN INFUSING THROUGH RED LUMEN. MD TO BEDSIDE FOR ROUNDS, REPORTS PT CAN TRY CRACKERS IF SHE FEELS READY. PT DECLIENS AT THIS TIME. PT RERPORTS SHE HAS BEEN PASSING GAS THIS AFTERNOON WHEN USING RESTROOM. ABDOMEN REMAINS TIGHT AND MILD TO MODERATLY DISTENDED. PT REPROTS HER ABDOMEN FEELS BLOATED BUT "BETTER THAN THIS MORNING." BOWEL TONES REMAIN HYPOACTIVE. PT ENCROUAGED TO CONTINUE AMBULATING THIS AFTERNOON. PT REPORTS DURING AMBULATION "IT FEELS SO GOOD TO STAND UP STRAIGHT AND STRETCH MY MUSCLES." PT UP TO PHYSICAL THERAPIST ROOM, WORKING WITH PIERRE PHYSICAL THERAPIST. PT DENIES ADDIITONAL REQUESTS OR COMPLAINTS.
--- NOTE | 2021-10-25 14:03 | NUR ---
PT ALERT, ORIENTED AND SITTING UP IN CHAIR WATCHING TV AND ENJOYING SOME CLEAR LIQUIDS! PT EXCITED NGT DC'D AND FEELING MUCH BETTER. PT ENCOURAGED HOW SHE HAS IMPROVED. PT EXPRESSED THANKFULNESS FOR HER BUDDY. GAVE BLESSING, WILL CONTINUE TO FOLLOW
--- NOTE | 2021-10-25 15:22 | NUR ---
1500: THIS RN AT THE BEDSIDE TO HANG NEXT IV RX ORDERED. PT WITH C/O OF 5/10 ABDOMINAL PAIN AND REQUESTS RX. ADMINISTERED ORDERED, SEE PT EMAR. COMFORTABLE WITHOUT FURTHER NEEDS. CALL LIGHT WITHIN REACH
--- NOTE | 2021-10-25 15:24 | NUR ---
THIS RN TO ROOM TO CHECK ON PT. PT RESTING IN BED. REPORTS ABDOMINAL PAIN AT 5/10, PAIN MEDICAITN RECENTLY GIVEN. PT REPORTS SHE IS FEELING MORE BLOATED THIS AFTERNOON. PT DENIES NAUSEA. PT REPORTS PHYSICAL THERAPY "WENT REALLY WELL." NO ADDITIONAL REQUESTS OR COMPLAINTS. CALL LIGHT WITHIN REACH. BED RAILS UP.
--- NOTE | 2021-10-25 16:19 | NUR ---
TPN DUE. MEDICATION AND SET UP CONFIRMED BY HERBER MAYA. PICC LINE ASSESSED, WNL. BRISK BLOOD RETURN NOTED. TPN INFUSION STARTED. PT RESTING ON LEFT SIDE WITH EYES CLOSED. AT BEDSIDE. PT REPORTS ONGOING 5/10 ABDOMINAL PAIN. PT REQUESTS TO HAVE SOME IBUPROFEN "OR SOMETHING." MESSAGE SENT TO DR. WEBER. PT DECLINES HEAT PACK. NO ADDITONAL REQUESTS OR COMPLAINTS. CALL LIGHT WITHIN REACH. BED RAILS UP. AT BEDSIDE.
--- NOTE | 2021-10-25 17:03 | NUR ---
THIS RN TO ROOM TO CHECK ON PT. PT REPORTS PAIN IS IMPROVING NOW 12/24. PT RESTING ON BACK, NO ADDITIONAL REQUESTS OR COMPLAINTS. CONTINUES TO DENY NAUSEA. STAND BY ASSIST UP TO VOID. PT VOIDS 600ML CLEAR YELLOW URINE. PT PERFORMS SELF VITA CARE. STAND BY ASSIST BACK TO BED. CALL LIGHT WITHIN REACH. BED RAILS UP.
--- NOTE | 2021-10-25 17:41 | NUR ---
COVID SWAB COLLECTED SENT TO IN-HOUSE LAB
--- NOTE | 2021-10-25 17:44 | NUR ---
PT HERE FOR PANCREATIS AND MICA SYNDROME. PT UP WITH STAND BY ASSIST FOR LINE MANAGEMENT. PT ADVANCED TO CLEAR LIQUID DIET THIS SHIFT AND IS TOLERATING WITHOUT NAUSEA. BOWEL TONES HYPOACTIVE. ABDOMINAL DISTENTION APPEARS TO BE INCREASING. PT REPORTS FEELING BLOATED BUT IS PASSING GAS. PT UP TO AMBUALTE IN NOONAN THIS SHIFT AND TIME UP TO CHAIR ENCOURAGED. NG TUBE DC'D BY DR. CARABALLO THIS MORNING. PRN TYELNOL AND TORADOL GIVEN FOR ABOMDINAL AND LOWER BACK PAIN. IV FLUIDS DC'D. IV POTASSIUM RIDERS GIVEN. TPN AND LIPIDS INFUSING. BLOOD SUGARS STABLE THIS SHIFT. TELEMETRY MONITORING DC'D. PT IS VOIDIGN QUANTITY SUFFICIENT. PT USES CALL LIGHT AND MAKES NEEDS KNOWN.
--- NOTE | 2021-10-25 18:40 | NUR ---
THIS RN TO ROOM TO CHECK ON PT. PT UP IN NOONAN TO AMBULATE X1 LAP WITH . PT REPORTS FEELING TIRED AND BLOATED BUT STATES PAIN IS "OK, BETTER." PT DRINKING/EATING CLEAR LIQUIDS. PT DENIES NAUSEA. NO ADDIITONAL REQUESTS OR COMPLAINTS AT THIS TIME. CALL LIGHT WITHIN REACH. AT BEDSIDE.
--- NOTE | 2021-10-25 19:10 | NUR ---
IN ROOM FOR REPORT, PT IS AWAKE IN CHAIR. IS IN THE ROOM AND THEY DENIES NEEDS AT THIS TIME. IV PUMPS ARE INFUSINF FINE. CALL LIGHT IS CLOSE.
--- NOTE | 2021-10-25 19:44 | NUR ---
PT'S IV BUMP WAS BEEPING, IT IS NOW INFUSING FINE. PT DENIES FURTHER NEEDS. CALL LIGHT IS CLOSE.
--- NOTE | 2021-10-25 22:57 | NUR ---
IN ROOM TO ASSESS PT AND ADMINISTER MEDICATIONS. ADMINISTERED SEROQUEL FOR SLEEP AND TYLENOL FOR 6/10 PAIN. PT REPORTS SHE CONTINUES TO PASS GAS BUT NO BM YET. ABD IS FIRM AND DISTENDED WITH HYPOACTIVE BT. HEPLOCKED LUMEN THAT WAS INFUSING PIGGYBACK FLUIDS SINCE IT WAS COMPLETE, GOOD BLOOD RETUN NOTED. PT IS TOLERATING CLEAR LIQUIDS. SHE DENIES FURTHER NEEDS, CALL LIGHT IS CLOSE.
--- NOTE | 2021-10-26 00:54 | NUR ---
PT WAS UP TO USE RESTROOM, SHE IS BACK IN BED. FRESH ICEWATER PROVIDED AND PT DENIES FURTHER NEEDS. CALL LIGHT IS CLOSE, TPN/LIPIDS INFUSING FINE.
--- NOTE | 2021-10-26 01:35 | NUR ---
PT'S IV PUMP WAS BEEPING, IT IS NOW INFUSING FINE. PT IS ASKING ABOUT MEDICATION FOR 5/10 BACK PAIN. SHE DOES NOT WANT OXYCODONE BUT WOULD LIKE ALEVE. TOLD PT WE CAN CHECK WITH DR IN AM BUT THIS RN CAN BRING TYLENOL A LITTLE EARLY WHEN IT'S DUE. PT DENIES FURTHER NEEDS. CALL LIGHT IS CLOSE.
--- NOTE | 2021-10-26 03:09 | NUR ---
PT REPORTS PAIN HAS DECREASED TO A 4/10. SHE HAD A SMALL BM ABOUT 5 CASEY OF HARD STOOL. TOO EARLY FOR TYLENOL AT THIS TIME, PT STATES SHE CAN WAIT 1.5 HOURS TIL NEXT DOSE. WILL CHECK IN AM FOR ANOTHER AM BESIDE OXYCODONE PT DOES NOT WANT TO TAKE THAT. PT DENIES FURTHER NEEDS AT THIS TIME, TPN/LIPID CONTINUE TO INFUSE. CALL LIGHT IS CLOSE.
--- NOTE | 2021-10-26 04:48 | NUR ---
NEW TPN BAG INFUSING THROUGH PICC, GOOD BLOOD RETURN WITH FLUSHING. AM LABS DRAWN. ADMINISTERED TYLENOL FOR 6/10 BACK PAIN. PT HAS HEAD PAD IN PLACE ON BACK. FRESH ICEWATER AT BEDSIDE AND VS/I&O'S ENTERED. PT DENIES FURTHER NEEDS. CALL LIGHT IS CLOSE.
--- NOTE | 2021-10-26 06:00 | NUR ---
PT'S IV PUMP WAS BEEPING, SHE IS RESTING WITH EYES CLOSED. RR IS EVEN AND UNLABORED, CALL LIGHT IS CLOSE.
--- NOTE | 2021-10-26 07:22 | NUR ---
REPORT RECEIVED FROM HERBER MACKENZIE. PT RESTING ON LEFT SIDE, PT REPORTS 6/[address] AND BACK PA[address] LY CALLED REGARDING PTS CONDITION AND LABS. NEW ORDERS GIVEN FOR AB/PELVIS CT WITH CONTRAST AND DILAUDID FOR PAIN CONTROL. ORDERS ENTERED. CT CALLED AND STATES THEY WILL CALL WHEN THEY ARE READY FOR THE PT. BED RAILS UP. CALL LIGHT WITHIN REACH.
--- NOTE | 2021-10-26 07:53 | NUR ---
MORNING ASSESMENT, MEDICATION AND CT SCAN DUE. PT UPDATED ON PLAN OF CARE AND LAB RESULTS DIRECTED BY DR. LY. PT VERBALIZES UNDERSTANDING. PT REQUESTS TO HAVE HER MEDICATIONS PRIOR TO CT SCAN. DULOXETEN GIVEN. LOVENOX HELD RELATED TO PTS LAB VALUES, MESSAGE SENT TO DR. WEBER. PT REPORTS 5/10 ABDOMINAL AND BACK PAIN. EDUCATION DONE WITH PT REGARDING MEDICATION OPTIONS. PT REPORTS "I DONT' WANT TO TAKE ANY OPIOIDS." PT REQUESTS IBUPROFEN OR NEPROXEN. EDUCATION DONE WITH PT REGARDING WHY MDs HAVE NOT ORDERED NSAIDS AT THIS TIME. PT VERBALIZES UNDERSTANDING AND STATES SHE DOES NOT WANT ANY PAIN MEDICATION AT THIS TIME IF THE ONLY OPTIONS ARE OPIOIDS. PICC LINE ASSESSED, BRISK BLOOD RETURN NOTED FROM BOTH LUMENS. BOTH LUMENS SALINE LOCKED FOR CT SCAN. BASELINE NUMBNESS/TINGLING REMAINS. HEART TONES REGULAR ALTOUGH MILD TACHYCARDIA IS NOTED. LUNG SOUNDS CLEAR. ABDOMEN REMAINS DISTENDED. PT REPORTS HER ABDOMEN FEELS "LESS" DISTENDED THAN YESTERDAY. MODERATE DISTENTION STILL NOTED. MILDLY FIRM TO PLAPATION. NO ADDITIONAL PAIN NOTED WITH PALPATION. BOWEL TONES HEARD. PT CONTINUES TO TOELRATE CLEAR LIQUIDS WITHOUT NAUSEA. PT TRANSFERES SELF TO WHEELCHAIR FOR CT SCAN. WARM BLANKETS PROVIDED. PT TO CT WITH IMAGING TECHNITITAN.
--- NOTE | 2021-10-26 09:00 | NUR ---
Spoke with Pt. States she is not feeling well today. She did pass gas and have a sm BM. Spoke with Dr. Vee, pt cont. to make slow progress.
--- NOTE | 2021-10-26 09:23 | NUR ---
PT RETURNED FROM CT SCAN. PT RESTING ON RIGHT SIDE IN BED. PT UPDATEDON PLAN OF CARE. 10ML WASTE AND 10ML BLOOD DRAW FROM PICC LINE, PT BLOOD BANDED. LINE FLUSHED AND TPN INFUSION RESTARTED. PT REPORTS BACK PAIN CONTINUES AT 5/10. PT CONTINUES TO DECLINE OPIOID PAIN MEDICATIONS. TYELNOL NOT YET DUE. STAND BY ASSIST UP TO RESTROOM. PT VOIDS WITHOUT ISSUE. PT BACK TO BED. CLEAR LIQUIDS DELIVERED FOR BREAKFAST. NO ADDITIONAL REQUESTS OR COMPLAINTS. CALL LIGHT WITHIN REACH. BED RAILS UP.
--- NOTE | 2021-10-26 10:10 | NUR ---
THIS RN TO ROOM TO CHECK ON PT UP TO CHAIR. PT REPORTS 5/10 PAIN "JUST IN MY BACK." DR. WEBER CONSULTED REGARDING LIDOCANE PATCH. NEW ORDERS PLACED. PTS UPDATED ON NEW RESULTS AND PLAN OF CARE. BUDDY VERBALIZES UNDERSTANDING OF PLAN OF CARE AND STATES HIS QUESTIONS HAVE BEEN ANSWERED. NO ADDITIONAL REQUESTS OR COMPLAINTS. CALL LIGHT WITHIN REACH.
--- NOTE | 2021-10-26 12:04 | NUR ---
THIS RN TO ROOM WITH DR. WEBER FOR ROUNDS. PT AND FAMILY UPDATED ON PLAN OF CARE, BOTH VERBALIZE UNDERSTANDING AND STATE THEIR QUESTIONS HAVE BEEN ANSWERED. PT REQUESTS A STOOL SOFTENER. VERBAL ORDERS FROM MD FOR MIRILAX AND SENNA, ORDERS ENTERED. VERBAL ORDERS GIVEN TO ADVANCE DIET TO FULL LIQUID. DIET ADVANCED, SOUP ORDERED PER PT PREFERENCE. PT ERPORTS 4/10 PAIN IN LOWER BACK AND CONTIUES TO REPORT BLOATING FEELS "BETTER." NO ADDITIONAL REQUESTS OR COMPLAINTS. CALL LIGHT WITHIN REACH.
--- NOTE | 2021-10-26 12:47 | NUR ---
DR. WEBER STATES TO ENSURE PT HAS CRACKERS WITH HER SOUP AND ENSURE IF SHE CAN TOELRATE IT. PT REPORTS SHE WOULD LIKE TO TRY A VANILLA ENSURE, ORDER CALLED TO DIETARY. PT UP TO AMBULATE X1 LAP IN [place], INDEPENDANT. PHYSICAL THERAPY TO BEDSIDE WORKING WITH PT. PT DENIES ADDITIONAL REQUESTS OR COMPLAINTS. CALL LIGHT WITHIN REACH. AT BEDSIDE.
--- NOTE | 2021-10-26 14:16 | NUR ---
AFTERNOON ASSESSMENT AND MEDICATION DUE. PT RESTING IN BED. PT REPORTS SHE IS JUST WAKING UP FROM A NAP. PT REPORTS SHE IS FEELING LIKE SHE IS "RESTING A LOT BETTER." PT REPROTS BACK PAIN HAS IMPROVIED TO 11/23. DENIES ABDOMINAL PAIN. PICC LINE RED LUMEN INFUSING TPN, FLUSHED, BRISK BLOOD RETURN NOTED. PICC LINE PURPLE LUMEN FLUSHED, BRISK BLOOD RETURN NOTED, AND HEPARIN LOCKED. STAND BY ASSIST UP TO RESTROOM. PT VOIDS WITHOUT ISSUE. HEART RATE REGULAR AND WNL. LUNG SOUNDS CLEAR. PT REMAINS ALERT AND ORIENTED TO ALL. PT DENIES NAUSEA. ABDOMEN MORE SOFT THIS AFTERNOON ALTHOUGH STILL MILDY FIRM TO TOUCH, MILD DISTENTION NOTED. PT CONTINUES TO REPORT FEELING BLOATED BUT STATES "I THINK ITS GETTING A LITTLE BETTER." BOWEL TONES HYPOACTIVE AT THIS TIME. ABDOMEN NO LONGER GAURDED AND PT DENIES PAIN. PT DENIES ADDITIONAL REQUESTS OR COMPLAINTS. CALL LIGHT WITHIN REACH. BED RAILS UP.
--- NOTE | 2021-10-26 14:20 | NUR ---
PT RESTING ON L SIDE IN BED, ASLEEP ON COUCH. PT FEELING BETTER, DIFFICULT AM, BUT GOOD RESULTS AND PT VERY PLEASED [facility]. HAD PRAYER WOTH PT, WILL FOLLOW
--- NOTE | 2021-10-26 16:14 | NUR ---
TPN DUE. THIS RN TO ROOM. PT STATES SHE WAS ABLE TO FINISH A FULL ENSURE "ABOUT AN HOUR AGO." PT DENIES NAUSEA OR ADDITIONAL ABOMDINAL DISCOMFORT. PT REPORTS 5/10 BACK PAIN, TYLENOL GIVE. DR. WEBER CALLED AND UPDATED REGARDING PTS PO INTAKE PER HIS REQUEST. DR. WEBER STATES TO CALL DR. LY AND REQUEST THAT TPN BE DISCONTINUED. DR. LY CALLED. ORDERS TO DECREASE TPN RATE BY HALF FOR 6 HOURS AND THEN DC TPN INFUSION AND START D5 LR AT A RATE OF 50. ORDERS ENTERED. PHARMACIST CALLED AND STATES IT IS OK TO HANG CURRNT BAG OF TPN DUE AT 1600 WITH NEW RATE OF 42ML/HR. BAG HUNG, NEW TUBING USED. PICC LINE ASSESSED, WNL, BRISK BLOOD RETURN NOTED. PT REQUESTS STOOL SOFTERNERS NOW. PHARAMCY RETIMED FIRST DOSE FOR NOW, MEDICATIONS GIVEN. PT REPORTS ANOTHER BOWEL MOVEMENT, SMALL PEBBLE LIKE BROWN STOOL NOTED. PT DENIES ADDITOINAL REQUESTS OR COMPLAINTS. PT RESTING ON RIGHT SIDE. CALL LIGHT WITHIN REACH. BED RAILS UP.
--- NOTE | 2021-10-26 16:54 | NUR ---
PT HERE FOR PANCREATITIS AND MICA'S SYNDROME. PT UP INDEPENDANTLY IN ROOM AND TO AMBULATE IN [place] THIS SHIFT. PT ADVANCED TO FULL LIQUID DIET AND IS TOLERATING INTAKE, INCLUDING ENSURE, WELL. TPN RATE DECREASED BY HALF AND WILL DC AT ~2200. IV FLUIDS TO BE STARTED AT THAT TIME. ADDITIONAL BOWEL MOVEMENT NOTED THIS SHIFT, PEBBLE LIKE, STOOL SOFTENERS ORDERED AND GIVEN. CT SCAN THIS MORNING. ABOMDNE REMAINS MILDLY DISTENDED LESS FIRM TO TOUCH. PICC LINE INFUSING TPN AND 2ND LUMEN HEPARIN LOCKED. LABS REPEATED. PT VOIDING QUANTITY SUFICIENT. PT USES CALL LIGHT AND MAKES NEEDS KNOWN.
--- NOTE | 2021-10-26 17:29 | NUR ---
DINNER ARRIVED, DELIVERED TO PT. PT REPORTS BACK PAIN HAS IMPROVED NOW 12/24. PT DENIES ADDITIONAL REQUESTS OR COMPLAINTS. CALL LIGHT WITHIN REACH. BED RAILS UP.
--- NOTE | 2021-10-26 18:28 | NUR ---
THIS RN TO ROOM TO CHECK ON PT. PT REPORTS SHE WAS ABLE TO HAVE ANOTHER BOWEL MOVEMENT THAT WAS STILL FORMED AND "ABOUT THE SAME THE LAST ONE." PT REPORTS SHE FEELS MORE MOVEMENT IN HER ABODMEN. PT REPORTS 4/10 PAIN IN HER LOWER BACK, DENIES NEED FOR PAIN MEDICATION AT THIS TIME. NO ADDITIONAL REQUESTS OR COMPLAINTS. CALL LIGHT WITHIN REACH. BED RAILS UP.
--- NOTE | 2021-10-26 19:00 | NUR ---
IN ROOM FOR REPORT, PT IS AWAKE IN BED. SHE DENIES NEEDS AT THIS TIME. CALL LIGHT IS CLOSE, TPN IS INFUSING FINE.
--- NOTE | 2021-10-26 19:52 | NUR ---
PER REPORT WITH PT SHE DID NOT WEAR LIDOCAINE PATCH FOR VERY LONG TODAY IT CAME OFF IN BED. PT WOULD RATHER WEAR IT AT BEDTIME AND TAKE IT OFF DURING THE DAY. CHANGED ORDER TO NIGHT TIME AND REMOVE IN AM.
--- NOTE | 2021-10-26 20:47 | NUR ---
IN ROOM TO ASSESS PT AND ADMINISTER MEDICATIONS. ADMINISTERED MOTRIN FOR 5/10 BACK PAIN AND LIDODERM PATCH IS IN PLACE ON L LOWER BACK. SHE IS TOLERATING FULL LIQUIDS AND HAS ACTIVE BT. TPN IS INFUSING PER ORDERS AND WILL BE COMPLETE IN THE NEXT HOUR OR SO. PT DENIES FURTHER NEEDS. CALL LIGHT IS CLOSE. IS IN THE ROOM AT THIS TIME.
--- NOTE | 2021-10-26 22:07 | NUR ---
TPN COMPLETE. D5LR IS NOW INFUSING. PT REPORTS PAIN IS IMPROVED WITH MOTRIN. PT DENIES FURTHER NEEDS CALL LIGHT IS CLOSE.
--- NOTE | 2021-10-26 22:15 | NUR ---
VS AND I&Os DONE
--- NOTE | 2021-10-27 00:20 | NUR ---
PT IS RESTING WITH EYES CLOSED, RR IS EVEN AND UNLABORED. CALL LIGHT IS CLOSE AND PICC IS INFUSING FINE.
--- NOTE | 2021-10-27 02:07 | NUR ---
PT IS RESTING WITH EYES CLOSED, RR IS EVEN AND UNLABORED. CALL LIGHT IS CLOSE AND PICC IS INFUSING FINE.
--- NOTE | 2021-10-27 02:20 | NUR ---
Q6 GLUC CHECK (SEE EMAR), NURSE INFORMED
--- NOTE | 2021-10-27 02:54 | NUR ---
PT'S IV PUMP WAS BEEPING, IT IS NOW INFUSING FINE. PT REQUESTS MOTRIN SHE HAS 0/10 PAIN AT THIS TIME BUT WOULD LIKE TO TAKE MOTRIN TO MAKE SURE SHE STAYS THIS WAY. BOWEL TONES ARE ACTIVE AND SHE CONTINUES TO PASS GAS. PT DENIES FURTHER NEEDS CALL LIGHT IS CLOSE.
--- NOTE | 2021-10-27 05:19 | NUR ---
PT IS RESTING WITH EYES CLOSED, RR IS EVEN AND UNLABORED. CALL LIGHT IS CLOSE AND IV IS INFUSING FINE.
--- NOTE | 2021-10-27 05:56 | NUR ---
BLOOD DRAWN VIA PICC AFTER STOPPING IV FLUIDS FOR A COUPLE MINS. 5MLS WASTED. HEPLOCKED 2ND LUMEN. PT DENIES NEEDS AT THIS TIME. CALL LIGHT IS CLOSE.
--- NOTE | 2021-10-27 06:50 | NUR ---
ADMINISTERED TYLENOL FOR 3/10 BACK PAIN. PT DENIES FURTHER NEEDS. CALL LIGHT IS CLOSE. PICC LINE IS INFUSING FINE.
--- NOTE | 2021-10-27 08:45 | NUR ---
Went into patient's room to give morning meds and check on her progress with breakfast. Patient was sitting up, eating breakfast and talking to her . I verified pt identity and scanned all medications and reiterated with pt what medications are for- pt agreed to all medications, but wanted to hold out on the Senna tablets. Pt response to medications were WNL, and I helped the pt readjust in her bed, spoke to her about showering later, and she knew where the call light was. Pt's stayed in the room with her after I left.
--- NOTE | 2021-10-27 09:00 | NUR ---
REPORT RECEIVED FROM NIGHT RN AND PT. CARE RESUMED. PT. IS ALERT AND ORIENTED. SHE REPORTS TOLERABLE BACK PAIN AND ABDOMINAL PRESSURE. BOWEL TONES HYPERACTIVE THROUGHOUT. PT. REPORTS SHE IS TOLERATING FULL LIQUIDS WELL AND DENIES NAUSEA. PICC WNL, FLUSHES AND HAS BLOOD RETURN IN BOTH LUMENS. DISCUSSED POC AND PAIN. LEFT RESTING WITH CALL LIGHT IN REACH.
--- NOTE | 2021-10-27 10:43 | NUR ---
IVF STOPPED PER ORDER. PT. UP IN THE CHAIR AND DENIES PAIN. SHE STATES "I FEEL SO MUCH BETTER". PT. ASSISTED WITH BATH. DENIES FURTHER NEEDS AT THIS TIME. IN THE ROOM
[2021-10-27] MEDS ORDERED: PANTOPRAZOLE SO40 MG PO (10:53)
--- NOTE | 2021-10-27 10:54 | NUR ---
PT ALERT, ORIENTED AND RESTING VISITING WITH BUDDY. PT EXCITED SHE HAD CREAM OF WHEAT FOR AM MEAL. HOPES TO DC TODAY, GAVE ENCOURAGMENT, PT ASKED FOR PRAYER. WILL FOLLOW
--- NOTE | 2021-10-27 13:31 | NUR ---
PICC LINE REMOVED WITH CATH INTACT. PRESSURE HELD AND DRESSING APPLIED. PT. EDUCATED ON REMOVAL. ALL DISCHARGE INSTRUCTIONS REVIEWED AND QUESTIONS ANSWERED. VITALS STABLE AND PT. DENIES PAIN. PT. LEFT WITH ALL BELONGINGS VIA WHEELCHAIR WITH AND HOME RESTORATION SERVICE CLEANER.
== END 2021-10-27 13:25 | disposition home or self-care (01) | DRG 439 ==
LOC: MS 20:07 → CCU 10-23 14:45 → MS 10-24 13:09
PROVIDERS: Surgery; ADMIT Internal Medicine; ATTEND Internal Medicine
PROC: 02H633Z Insertion of Infusion Device into Right Atrium, Percutaneous Approach (ICD-10-PCS; 2021-10-18)
PROC: 0D9670Z Drainage of Stomach with Drainage Device, Via Natural or Artificial Opening (ICD-10-PCS; 2021-10-18)
PROC: 0DJD8ZZ Inspection of Lower Intestinal Tract, Via Natural or Artificial Opening Endoscopic (ICD-10-PCS; principal; 2021-10-24 10:58)
DX: K85.90 Acute pancreatitis without necrosis or infection, unspecified (principal); K56.7 Ileus, unspecified; E46 Unspecified protein-calorie malnutrition; K59.81 Ogilvie syndrome; F39 Unspecified mood [affective] disorder; Z20.822 Contact with and (suspected) exposure to COVID-19; G62.9 Polyneuropathy, unspecified; E87.6 Hypokalemia; Z68.32 Body mass index [BMI] 32.0-32.9, adult; Z85.3 Personal history of malignant neoplasm of breast; Z91.040 Latex allergy status; Z91.048 Other nonmedicinal substance allergy status; Z90.49 Acquired absence of other specified parts of digestive tract; Z98.890 Other specified postprocedural states; Z90.13 Acquired absence of bilateral breasts and nipples; Z79.899 Other long term (current) drug therapy
CPT/HCPCS: 36415; 36569; 71045; 74018; 74177; 74183; 80048; 80053; 80061; 80503; 83690; 83735; 84100; 84134; 85018; 85025; 85610; 86850; 86900; 86901; 97162; A9270; A9577; C1751; C9113; C9803; J0131; J0780; J1170; J1650; J1885; J2405; J2704; J2710; J2765; J3475; J3480; J7060; J7121; Q9967; U0003